=== PATIENT | female | born 1945 | race Caucasian/White ===

== ENCOUNTER 2020-09-21 10:02 | Inpatient (IN) ==
[2020-09-22] MEDS ORDERED: D5% in Water 1,000 ML IVC PRN (16:57)
[2020-09-22] MEDS ORDERED: Dextrose Gel 15 GM/37.5 ML TUBE PO PRN ×2 (16:57)
[2020-09-22] MEDS ORDERED: *HR* Dextrose 50 % in Water (Vial) 50 ML VIAL IVP PRN (16:57)
[2020-09-22] MEDS: GlipiZIDE 5 MG TABLET PO SCH (17:39)
[2020-09-23] MEDS: *HR* Enoxaparin 40 MG/0.4 ML SYRINGE SQ SCH (05:41)
[2020-09-23 05:46] LABS: Basophils % 0.9 %; Eosinophils # 0.2 K/mcL (0.0-0.6); Eosinophils % 3.7 %; Hematocrit 42.1 % (35.3-44.9); Hemoglobin 13.5 g/dL (11.5-15.4); Immature Granulocytes % 0.7 % (0-4); Lymphocytes # 1.2 K/mcL (0.6-4.6); Lymphocytes % 26.9 %; Mean Corpuscular HGB Conc 32.1 g/dL (31.6-35.5); Mean Corpuscular Hemoglobin 27.9 pg (28.0-33.3); Mean Platelet Volume 11.9 fL (9.4-12.4); Monocytes # 0.6 K/mcL (0.0-1.3); Monocytes % 12.9 %; Neutrophils # 2.3 K/mcL (1.6-8.9); Platelet Count 116 K/mcL (140-400); Red Blood Count 4.84 M/mcL (3.82-4.97); Red Cell Distribution Width 12.8 % (11.5-14.5); Segmented Neutrophils % 54.9 %; White Blood Count 4.3 K/mcL (4.3-11.1)
[2020-09-23 06:09] LABS: Calcium 9.4 mg/dL (8.6-10.3); Potassium 4.2 mEq/L (3.5-5.1)
[2020-09-23 06:21] LABS: Platelet Estimate Decreased (Normal)
[2020-09-23] MEDS: Insulin LISPRO 300 UNITS/3 ML VIAL SUBQ SCH ×3 (08:11→16:59)
[2020-09-23] MEDS: lisinopriL 20 MG TABLET PO SCH (08:12)
[2020-09-23] MEDS: Multivit/Ca/Min/Fe/FA 1 TAB TABLET PO SCH (08:12)
[2020-09-23] MEDS: Triamterene/HCTZ 75/50 mg TABLET PO SCH (08:12)
[2020-09-23] MEDS: GlipiZIDE 5 MG TABLET PO SCH ×2 (08:12→16:59)
[2020-09-23] MEDS: Aspirin Enteric Coated 81 MG Tablet PO SCH (08:12)
[2020-09-23] MEDS: ASPIRIN PO SCH (08:13)
[2020-09-23] MEDS: CAFFEINE PO SCH (08:13)
[2020-09-24] MEDS: *HR* Enoxaparin 40 MG/0.4 ML SYRINGE SQ SCH (04:50)
[2020-09-24] MEDS ORDERED: *HR* HYDROcodone/Acet 5/325 mg TABLET PO PRN ×2 (07:02)
[2020-09-24] MEDS: Aspirin Enteric Coated 81 MG Tablet PO SCH (09:31)
[2020-09-24] MEDS: Multivit/Ca/Min/Fe/FA 1 TAB TABLET PO SCH (09:31)
[2020-09-24] MEDS: GlipiZIDE 5 MG TABLET PO SCH ×2 (09:31→17:00)
[2020-09-24] MEDS: Triamterene/HCTZ 75/50 mg TABLET PO SCH (09:31)
[2020-09-24] MEDS: ASPIRIN PO SCH (09:32)
[2020-09-24] MEDS: lisinopriL 20 MG TABLET PO SCH (09:32)
[2020-09-24] MEDS: Insulin LISPRO 300 UNITS/3 ML VIAL SUBQ SCH (09:32)
[2020-09-24] MEDS: CAFFEINE PO SCH (09:32)
[2020-09-24] MEDS: Acetaminophen 325 MG TABLET PO PRN (13:11)
[2020-09-25] MEDS: *HR* Enoxaparin 40 MG/0.4 ML SYRINGE SQ SCH (04:18)
[2020-09-25 05:47] LABS: Hematocrit 40.5 % (35.3-44.9); Mean Corpuscular HGB Conc 32.1 g/dL (31.6-35.5); Mean Corpuscular Hemoglobin 27.8 pg (28.0-33.3); Mean Corpuscular Volume 86.7 fL (83.0-100.0); Mean Platelet Volume 12.1 fL (9.4-12.4); Platelet Count 123 K/mcL (140-400); Red Blood Count 4.67 M/mcL (3.82-4.97); Red Cell Distribution Width 12.9 % (11.5-14.5); White Blood Count 4.1 K/mcL (4.3-11.1)
[2020-09-25 06:08] LABS: Albumin 4.1 g/dL (3.5-5.7); Albumin/Globulin Ratio 2.3 (1.1-2.2); Bilirubin,Total 0.9 mg/dL (0.3-1.0); Calcium 9.3 mg/dL (8.6-10.3); Globulin 1.8 g/dL (2.4-3.5); Magnesium 1.9 mg/dL (1.6-2.6); Potassium 4.1 mEq/L (3.5-5.1); Total Protein 5.9 g/dL (6.4-8.9)
[2020-09-25] MEDS: Acetaminophen 325 MG TABLET PO PRN (10:16)
[2020-09-25] MEDS: CAFFEINE PO SCH (10:17)
[2020-09-25] MEDS: Multivit/Ca/Min/Fe/FA 1 TAB TABLET PO SCH (10:17)
[2020-09-25] MEDS: ASPIRIN PO SCH (10:17)
[2020-09-25] MEDS: lisinopriL 20 MG TABLET PO SCH (10:17)
[2020-09-25] MEDS: Triamterene/HCTZ 75/50 mg TABLET PO SCH (10:17)
[2020-09-25] MEDS: GlipiZIDE 5 MG TABLET PO SCH ×2 (10:17→16:27)
[2020-09-25] MEDS: Aspirin Enteric Coated 81 MG Tablet PO SCH (10:17)
[2020-09-26] MEDS: *HR* Enoxaparin 40 MG/0.4 ML SYRINGE SQ SCH (06:27)
[2020-09-26] MEDS: GlipiZIDE 5 MG TABLET PO SCH ×2 (08:20→16:16)
[2020-09-26] MEDS: Triamterene/HCTZ 75/50 mg TABLET PO SCH (08:20)
[2020-09-26] MEDS: Multivit/Ca/Min/Fe/FA 1 TAB TABLET PO SCH (08:20)
[2020-09-26] MEDS: lisinopriL 20 MG TABLET PO SCH (08:20)
[2020-09-26] MEDS: Aspirin Enteric Coated 81 MG Tablet PO SCH (08:20)
[2020-09-26] MEDS: Acetaminophen 325 MG TABLET PO PRN (11:27)
[2020-09-26] MEDS: Insulin LISPRO 300 UNITS/3 ML VIAL SUBQ SCH (20:26)
[2020-09-26] MEDS: Artificial Tears SOLN 15 ML BOTTLE RIGHT EYE PRN (20:30)
[2020-09-27] MEDS: *HR* Enoxaparin 40 MG/0.4 ML SYRINGE SQ SCH (03:51)
[2020-09-27] MEDS: Insulin LISPRO 300 UNITS/3 ML VIAL SUBQ SCH ×4 (07:44→21:16)
[2020-09-27] MEDS: GlipiZIDE 5 MG TABLET PO SCH ×2 (07:45→16:57)
[2020-09-27] MEDS: Multivit/Ca/Min/Fe/FA 1 TAB TABLET PO SCH (07:45)
[2020-09-27] MEDS: lisinopriL 20 MG TABLET PO SCH (07:45)
[2020-09-27] MEDS: Aspirin Enteric Coated 81 MG Tablet PO SCH (07:45)
[2020-09-27] MEDS: Triamterene/HCTZ 75/50 mg TABLET PO SCH (07:45)
[2020-09-27] MEDS: Artificial Tears SOLN 15 ML BOTTLE RIGHT EYE PRN (21:18)
[2020-09-28] MEDS: *HR* Enoxaparin 40 MG/0.4 ML SYRINGE SQ SCH (04:09)
[2020-09-28] MEDS: Insulin LISPRO 300 UNITS/3 ML VIAL SUBQ SCH ×4 (08:38→20:06)
[2020-09-28] MEDS: GlipiZIDE 5 MG TABLET PO SCH ×2 (08:42→15:56)
[2020-09-28] MEDS: Aspirin Enteric Coated 81 MG Tablet PO SCH (08:42)
[2020-09-28] MEDS: Multivit/Ca/Min/Fe/FA 1 TAB TABLET PO SCH (08:42)
[2020-09-28] MEDS: lisinopriL 20 MG TABLET PO SCH (08:42)
[2020-09-28] MEDS: Acetaminophen 325 MG TABLET PO PRN (15:56)
[2020-09-29] MEDS: *HR* Enoxaparin 40 MG/0.4 ML SYRINGE SQ SCH (04:59)
[2020-09-29] MEDS: Multivit/Ca/Min/Fe/FA 1 TAB TABLET PO SCH (08:01)
[2020-09-29] MEDS: Aspirin Enteric Coated 81 MG Tablet PO SCH (08:01)
[2020-09-29] MEDS: lisinopriL 20 MG TABLET PO SCH (08:02)
[2020-09-29] MEDS: Insulin LISPRO 300 UNITS/3 ML VIAL SUBQ SCH ×4 (08:02→19:32)
[2020-09-29] MEDS: GlipiZIDE 5 MG TABLET PO SCH ×2 (08:03→17:36)
[2020-09-29] MEDS: Acetaminophen 325 MG TABLET PO PRN (17:54)
[2020-09-30] MEDS: *HR* Enoxaparin 40 MG/0.4 ML SYRINGE SQ SCH (04:37)
[2020-09-30 05:16] LABS: Hematocrit 35.4 % (35.3-44.9); Hemoglobin 11.4 g/dL (11.5-15.4); Mean Corpuscular HGB Conc 32.2 g/dL (31.6-35.5); Mean Corpuscular Hemoglobin 28.1 pg (28.0-33.3); Mean Corpuscular Volume 87.2 fL (83.0-100.0); Red Blood Count 4.06 M/mcL (3.82-4.97); Red Cell Distribution Width 12.6 % (11.5-14.5); White Blood Count 3.1 K/mcL (4.3-11.1)
[2020-09-30 05:34] LABS: Albumin 3.7 g/dL (3.5-5.7); Albumin/Globulin Ratio 1.7 (1.1-2.2); Bilirubin,Total 0.7 mg/dL (0.3-1.0); Calcium 8.8 mg/dL (8.6-10.3); Globulin 2.2 g/dL (2.4-3.5); Magnesium 1.6 mg/dL (1.6-2.6); Platelet Count 90 K/mcL (140-400); Total Protein 5.9 g/dL (6.4-8.9)
[2020-09-30] MEDS: Aspirin Enteric Coated 81 MG Tablet PO SCH (08:37)
[2020-09-30] MEDS: Triamterene/HCTZ 75/50 mg TABLET PO SCH (08:37)
[2020-09-30] MEDS: lisinopriL 20 MG TABLET PO SCH (08:37)
[2020-09-30] MEDS: GlipiZIDE 5 MG TABLET PO SCH ×2 (08:38→17:33)
[2020-09-30] MEDS: Insulin LISPRO 300 UNITS/3 ML VIAL SUBQ SCH ×4 (08:38→19:43)
[2020-09-30] MEDS: Multivit/Ca/Min/Fe/FA 1 TAB TABLET PO SCH (08:38)
[2020-10-01] MEDS: Insulin LISPRO 300 UNITS/3 ML VIAL SUBQ SCH ×4 (07:40→20:55)
[2020-10-01] MEDS: Aspirin Enteric Coated 81 MG Tablet PO SCH (08:35)
[2020-10-01] MEDS: lisinopriL 20 MG TABLET PO SCH (08:36)
[2020-10-01] MEDS: GlipiZIDE 5 MG TABLET PO SCH ×2 (08:36→16:59)
[2020-10-01] MEDS: Triamterene/HCTZ 75/50 mg TABLET PO SCH (08:36)
[2020-10-01] MEDS: Multivit/Ca/Min/Fe/FA 1 TAB TABLET PO SCH (08:36)
[2020-10-01] MEDS: *HR* Enoxaparin 40 MG/0.4 ML SYRINGE SQ SCH ×2 (11:32→22:53)
[2020-10-02] MEDS: Insulin LISPRO 300 UNITS/3 ML VIAL SUBQ SCH ×4 (07:54→20:35)
[2020-10-02] MEDS: Aspirin Enteric Coated 81 MG Tablet PO SCH (09:36)
[2020-10-02] MEDS: Triamterene/HCTZ 75/50 mg TABLET PO SCH (09:36)
[2020-10-02] MEDS: Multivit/Ca/Min/Fe/FA 1 TAB TABLET PO SCH (09:36)
[2020-10-02] MEDS: lisinopriL 20 MG TABLET PO SCH (09:37)
[2020-10-02] MEDS: GlipiZIDE 5 MG TABLET PO SCH ×2 (09:37→17:40)
[2020-10-03] MEDS: *HR* Enoxaparin 40 MG/0.4 ML SYRINGE SQ SCH (02:54)
[2020-10-03 06:51] VITALS: BP 112/66
[2020-10-03] MEDS: Insulin LISPRO 300 UNITS/3 ML VIAL SUBQ SCH ×2 (09:05→11:29)
[2020-10-03] MEDS: Multivit/Ca/Min/Fe/FA 1 TAB TABLET PO SCH (09:06)
[2020-10-03] MEDS: lisinopriL 20 MG TABLET PO SCH (09:06)
[2020-10-03] MEDS: Aspirin Enteric Coated 81 MG Tablet PO SCH (09:06)
[2020-10-03] MEDS: Triamterene/HCTZ 75/50 mg TABLET PO SCH (09:06)
[2020-10-03] MEDS: GlipiZIDE 5 MG TABLET PO SCH (09:06)
== END 2020-10-03 14:08 | disposition home or self-care (01) ==
LOC: INPGRE 09-22 15:34
PROVIDERS: ADMIT Family Medicine; ATTEND Family Medicine